=== PATIENT | male | born 1955 | race Caucasian/White ===

== ENCOUNTER 2017-11-10 09:58 | Emergency (ER) | payer BC ==
[2017-11-10 11:35] VITALS: BP 117/66
--- NOTE | 2017-11-10 12:11 | UC ---
Throat Pain/Nasal Jorge A HPI - HPI Summary HPI Summary: 62 male presents to with complaints of sinus pressure, congestion and headache that has been ongoing for the past week and worsening. Patient states he has been unable to get it to go away with over the counter treatment of tylenol cold and sinus and nyquil. States his post nasal drip is making him cough, sometimes productive, yellow in color. Admits to intermittent chills. Headache from sinus pressure intermittently. No other complaints. No PMHx. - History of Current Complaint Chief Complaint: UCRespiratory Stated Complaint: SINUS Hx Obtained From: Patient Onset/Duration: Sudden Onset, Lasting Weeks - 1, Still Present, Worse Since Severity: Moderate Pain Intensity: 5 Pain Scale Used: 0-10 Numeric Cough: Productive Associated Signs & Symptoms: Positive: Sinus Discomfort, Nasal Discharge - Allergies/Home Medications Allergies/Adverse Reactions: Allergies Allergy/AdvReac Type Severity Reaction Status Date / Time No Known Allergies Allergy Verified 11/10/17 11:29 PMH/Surg Hx/FS Hx/Imm Hx - Additional Past Medical History Additional PMH: Denies PMHx no DM or asthma - Surgical History Surgical History: Yes Surgery Procedure, Year, and Place: Herniorrhaphy, Tonsillectomy - Family History Known Family History: Positive: None - Social History Alcohol Use: Occasionally Substance Use Type: None Smoking Status (MU): Never Smoked Tobacco When Did the Patient Quit Smoking/Using Tobacco: 40 years ago - Immunization History Most Recent Influenza Vaccination: Fall 2014 Review of Systems Constitutional: Negative ENT: Nasal Discharge, Sinus Congestion, Sinus Pain/Tenderness Respiratory: Cough Cardiovascular: Negative Gastrointestinal: Negative Musculoskeletal: Negative Neurological: Headache All Other Systems Reviewed And Are Negative: Yes Physical Exam Triage Information Reviewed: Yes Appearance: Well-Appearing, No Pain Distress, Ill-Appearing Vital Signs: Initial Vital Signs Temp 98.2 F 11/10/17 11:31 Pulse 80 11/10/17 11:31 Resp 18 11/10/17 11:31 BP 117/66 11/10/17 11:31 Pulse Ox 99 11/10/17 11:31 Vital Signs Reviewed: Yes ENT: Positive: Normal ENT inspection, Hearing grossly normal, Pharynx normal, Nasal congestion, TMs normal, TM red, Sinus tenderness, Uvula midline. Negative : Tonsillar swelling, Tonsillar exudate Dental: Positive: Percussion Tenderness @ - maxillary and frontal bl. Negative : Cervical Lymphadenopathy Neck: Positive: Supple, Nontender, No Lymphadenopathy Respiratory: Positive: Chest non-tender, Lungs clear, Normal breath sounds, No respiratory distress, No accessory muscle use Cardiovascular: Positive: RRR, No Murmur, Pulses Normal, Brisk Capillary Refill Musculoskeletal: Positive: Strength Intact Neurological Exam: Normal Skin Exam: Normal Throat Pain/Nasal Course/Dx - Course Course Of Treatment: appears to be suffering from a sinus infection. will give ibuprofen for headache and pain/inflammation. flonase for nasal congestion. recommended saline rinses, warm compresses and hot showers. increase fluid intake and rest. augmentin. follow up. aware of worsening signs and symptoms to watch out for. no other concerns at this time. - Differential Dx/Diagnosis Differential Diagnosis/HQI/PQRI: Sinusitis, URI Provider Diagnoses: acute sinusitis Discharge - Discharge Plan Condition: Stable Disposition: HOME Prescriptions: Amoxicillin/Clavulanate TAB* [Augmentin TAB 875*] 875 mg PO BID #20 tab Fluticasone NASAL SPRAY 50MCG* [Flonase NASAL SPRAY 50MCG*] 2 spray BOTH NARES DAILY #1 btl Ibuprofen TAB* [Motrin TAB* 600 MG] 600 mg PO Q6H PRN #15 tab PRN Reason: Pain Patient Education Materials: Sinusitis (ED), Warm Compress or Soak (ED) Referrals: Seth Barbour MD [Primary Care Provider] - Additional Instructions: Take prescribed medication as directed. ibuprofen, with food, for headache and inflammation/pain. Hot showers and warm compresses. Saline rinses sold over the counter. Humidified air if able. Increase fluid intake. Follow up with PCP. Any new or worsening symptoms please seek medical attention.
== END 2017-11-10 12:29 | disposition home or self-care (01) ==
LOC: UCCORT 09:58
DX: J01.90 Acute sinusitis, unspecified (principal); Z87.891 Personal history of nicotine dependence
CPT/HCPCS: 99212; G0463

== ENCOUNTER 2017-12-26 17:23 | Emergency (ER) | payer BC ==
[2017-12-26 21:35] VITALS: BP 98/57
[2017-12-26] MEDS ORDERED: DOXYcycline CAP(*) 100 MG PO ONE (21:58)
--- NOTE | 2017-12-26 22:04 | UC ---
Respiratory Complaint HPI - HPI Summary HPI Summary: 62 yo male with one week hx of sinus pressure and pain/post nasal drip and cough recently rxed for sinusitis - History of Current Complaint Chief Complaint: UCGeneralIllness Stated Complaint: SINUS AND FEVER Time Seen by Provider: 12/26/17 21:36 Hx Obtained From: Patient Onset/Duration: Gradual Onset, Lasting Weeks - 1 Timing: Constant Severity Initially: Moderate Severity Currently: Moderate Pain Intensity: 8 Character: Cough: Nonproductive Alleviating Factors: Nothing Associated Signs And Symptoms: Positive: Nasal Congestion, Sinus Discomfort - Allergies/Home Medications Allergies/Adverse Reactions: Allergies Allergy/AdvReac Type Severity Reaction Status Date / Time No Known Allergies Allergy Verified 12/26/17 21:34 PMH/Surg Hx/FS Hx/Imm Hx Previously Healthy: Yes - Surgical History Surgical History: Yes Surgery Procedure, Year, and Place: Herniorrhaphy, Tonsillectomy, back - Family History Known Family History: Positive: None Negative: Cardiac Disease, Hypertension, Diabetes - Social History Alcohol Use: Occasionally Substance Use Type: None Smoking Status (MU): Never Smoked Tobacco When Did the Patient Quit Smoking/Using Tobacco: 40 years ago - Immunization History Most Recent Influenza Vaccination: Fall 2014 Review of Systems Constitutional: Fever, Chills, Fatigue Skin: Negative Eyes: Negative ENT: Nasal Discharge, Sinus Congestion, Sinus Pain/Tenderness Respiratory: Cough Cardiovascular: Negative Gastrointestinal: Negative Genitourinary: Negative Motor: Negative Neurovascular: Negative Musculoskeletal: Negative Neurological: Headache Psychological: Negative Is Patient Immunocompromised?: No All Other Systems Reviewed And Are Negative: Yes Physical Exam Triage Information Reviewed: Yes Appearance: Well-Appearing, No Pain Distress, Well-Nourished Vital Signs: Initial Vital Signs Temp 98.4 F 12/26/17 21:29 Pulse 76 12/26/17 21:29 Resp 16 12/26/17 21:29 BP 98/57 12/26/17 21:29 Pulse Ox 97 12/26/17 21:29 Eyes: Positive: Conjunctiva Clear ENT: Positive: Pharynx normal, Nasal congestion, Nasal drainage, TMs normal, Sinus tenderness, Uvula midline. Negative: Tonsillar swelling, Tonsillar exudate Neck: Positive: Supple, Nontender, No Lymphadenopathy Respiratory: Positive: Lungs clear, Normal breath sounds, No respiratory distress, No accessory muscle use Cardiovascular: Positive: RRR, No Murmur Musculoskeletal: Positive: ROM Intact, No Edema Neurological: Positive: Alert Psychological Exam: Normal UC Diagnostic Evaluation - Laboratory Pertinent Lab Values Are: WNL - flu (-) O2 Sat by Pulse Oximetry: 97 - normal/not hypoxic Respiratory Course/Dx - Differential Dx/Diagnosis Provider Diagnoses: acute sinusitis Discharge - Discharge Plan Condition: Stable Disposition: HOME Prescriptions: Doxycycline Hyclate 100 mg PO BID #18 tablet. Patient Education Materials: Sinusitis (ED) Referrals: Seth Barbour MD [Primary Care Provider] - 1 Week (if not better)
== END 2017-12-26 22:06 | disposition home or self-care (01) ==
LOC: UCCORT 17:23
DX: J01.90 Acute sinusitis, unspecified (principal)
CPT/HCPCS: 87502; 99212; A9270-GY; G0463